=== PATIENT | male | born 1955 | race Caucasian/White ===

== ENCOUNTER 2024-05-24 09:03 | Emergency (ER) | payer OTHER, SELFPAY ==
[2024-05-24 09:05] VITALS: BP 139/73
--- NOTE | 2024-05-24 09:19 | ED.GENMED ---
History of Present Illness
General
Chief Complaint: Fall
Source: patient
Exam Limitations: none
Time Seen by Provider: 05/24/24 09:09
History of Present Illness
History of Present Illness:
68yoM with a history of hypertension and hyperlipidemia presenting for evaluation of right knee pain. Patient was walking in his driveway around 5-6pm last night. He tripped on what he believes was ice and landed on his bent right knee. He denies
any head strike or LOC. His only current complaint is right knee pain. He has been using crutches since the injury. No prior knee injuries or surgeries in the past. He has not taken anything OTC.
Past History
Past History
ED Past Medical History: Arrthythmia (A-fib on ASA. History of SVT with ablation in 20 years ago), GERD, HTN, Hypercholesterolemia, Psychiatric (Depression, anxiety) and Other (Back pain, pneumonia, chronic bronchitis, arthritis)
ED Past Surgical History: Cardiac (Radiofrequency ablation over 20 years ago for SVT.) and Other (History of electrophysiology studies)
Social History
Tobacco: Non-smoker
Alcohol: None
Drug: None
Personal:
Living: with family
Employment: Not employed
Family History
Family History: Other (Noncontributory )
Phy Exam
General Physical Exam
General Presentation: well appearing and no apparent distress
General age: appears stated age
General Skin: warm and dry
General Habitus: normal
General Mental: alert
ENT Exam
ENT Exam: normocephalic and other (No cervical spine tenderness)
Pulmonary Exam
Pulmonary Exam: no respiratory distress
Neurological Exam
Neurological Exam: alert
Vikas Coma Scale
Eye Opening: Spontaneous
Verbal Response: Oriented
Motor Response: Obeys Commands
GCS Total Score: 15
Musculoskeletal Exam
Musculoskeletal Exam: other (R knee: Swelling noted with no deformity. +Generalized tenderness to anterior joint. ROM decreased 2/2 pain. 2+ DP pulse and sensation intact. )
Skin Exam
Skin Exam: normal color and warm/dry
Psychiatric Exam
Psychiatric Exam: normal mood/affect
Course
Orders/Labs/Results
Orders:
Orders
05/24/24 09:18
Oxycodone/Acetaminophen [Percocet 5/325] 1 tablet PO NOW STA
CR Knee- Right 4 Or More View* Urgent
Comment:
Reason For Exam: injury
05/24/24 11:13
Knee Immobilizer Right-Treatme ONCE
Vital Signs
Initial and Last Documented VS:
Initial Vital Signs
Temp Pulse Resp BP Pulse Ox
97.6 F 71 16 139/73 100
05/24/24 09:05 05/24/24 09:05 05/24/24 09:05 05/24/24 09:05 05/24/24 09:05
Last Documented Vital Signs
Temp Pulse Resp BP Pulse Ox
97.6 F 71 16 139/73 100
05/24/24 09:05 05/24/24 09:05 05/24/24 09:05 05/24/24 09:05 05/24/24 09:05
MDM/Problems Addressed
Differential Diagnosis Includes:
68yoM here with R knee pain after a fall last night. No other complaints. VSS. There is swelling and tenderness noted to the R knee without deformity. RLE is neurovascularly intact. Differential diagnosis includes but is not limited to: fracture,
sprain, dislocation
X-rays of R knee obtained. No fractures or dislocation seen. There is a moderate suprapatellar effusion present. Patient placed in a knee immobilizer. He has crutches at home. Supportive care discussed. Advised f/u with orthopedics. He was
discharged in stable condition.
*Critical Care Note
Total Time (30-74mins, 75-104mins- exclusive of procedures): Not Applicable
ED Attending Note
-
Portions of this chart may have been created with voice recognition software.� Occasional wrong word or��sound alike� substitutions may have occurred due to the inherent limitations of voice recognition software.
Discharge Plan
Departure
Patient Disposition: Home (Routine Discharge)
Date of Disposition: 05/24/24
Time of Disposition: 11:22
Patient with high blood pressure during this ER visit?: No
Discharge Problem:
Injury of right knee
Instructions: Knee Immobilizer (DC), Knee pain - ED discharge instructions
Prescriptions:
No Action
simvastatin 10 MG tablet
5 mg PO QPM
aspirin [Aspir-Low] 81 MG tablet,delayed release (DR/EC)
81 mg PO DAILY
diltiazem HCl [Cardizem LA] 240 MG tablet extended release 24 hr
240 mg PO DAILY
Flax Seed Oil
1 tab PO DAILY
Folic Acid
1 tab PO DAILY
Vitamin D
1 tab PO DAILY
alprazolam 0.25 MG tablet
0.25 mg PO Q8HPRN PRN (Reason: anxiety)
zolpidem [Ambien] 10 MG tablet
10 mg PO HS
vilazodone [Viibryd] 1 EACH tablets,dose pack
1 ea PO DAILY
Mysoline
10 mg PO HS
Referrals:
Edgar Thompson MD [Active] -
Jesika Henao MD [Family Provider] -
Stand Alone Forms: Return to Work
Activity Restrictions/Additional Instructions:
Wear knee immobilizer. Apply ice and elevate your knee to help with swelling. Take Tylenol as needed for pain.
Please call today to schedule a follow-up appointment with orthopedics.
Interventions
Interventions:
*Risk Screen - Suicide Last Done: 05/24/24 09:05
*General Assessment Last Done: 05/24/24 09:05
*Neglect/Abuse Screening Last Done: 05/24/24 09:05
ED-Musculoskeletal Assessment Last Done: 05/24/24 09:24
ED- Neurological Assessment Last Done: 05/24/24 09:24
ED-Skin Assessment Last Done: 05/24/24 09:24
Discharge Date and Time
Print Language: [place]
[2024-05-24] MEDS: PERCOCET 5/325 1 TABLET PO (09:22)
[2024-05-24 12:01] VITALS: BP 138/69
== END 2024-05-24 12:03 | disposition home or self-care (01) ==
LOC: EMR 09:03
PROVIDERS: EMERGENCY PHYSICIAN Emergency Medicine; FAMILY PHYSICIAN Family Medicine
DX: S89.91XA Unspecified injury of right lower leg, initial encounter (principal); W00.0XXA Fall on same level due to ice and snow, initial encounter; E78.00 Pure hypercholesterolemia, unspecified; I10 Essential (primary) hypertension; I48.91 Unspecified atrial fibrillation; K21.9 Gastro-esophageal reflux disease without esophagitis; Z79.82 Long term (current) use of aspirin
CPT/HCPCS: 29505; 99283; 73564

== ENCOUNTER 2024-06-05 21:07 | Emergency (ER) | payer SELFPAY ==
[2024-06-05 21:10] VITALS: BP 120/91
[2024-06-06] VITALS: BP 127/79
[2024-06-06 00:01] VITALS: BMI 28.5
--- NOTE | 2024-06-06 00:29 | ED.MUSCINJ ---
HPI-Injury
General
Chief Complaint: Fall
Source: patient
Exam Limitations: none
Time Seen by Provider: 06/06/24 00:07
History of Present Illness-Injury
Initial Injury comments:
69-year-old male presents complaining of ongoing right knee pain. He was seen here couple weeks ago after slip and fall while at work. He fell directly on his knee. X-rays were taken of his knee at that time were negative for fracture but did
demonstrate an effusion. He was given a knee immobilizer and told to follow-up. He states he does not have an appointment until June with the orthopedic doctor. He is not sure if his knee immobilizer is working properly. He notes ongoing pain
and presented here. No new injury. He denies a fever. He has been using Tylenol with some relief. He has crutches as well.
Past History
Past History
ED Past Medical History: Arrthythmia (A-fib on ASA. History of SVT with ablation in 20 years ago), GERD, HTN, Hypercholesterolemia, Psychiatric (Depression, anxiety) and Other (Back pain, pneumonia, chronic bronchitis, arthritis)
ED Past Surgical History: Cardiac (Radiofrequency ablation over 20 years ago for SVT.) and Other (History of electrophysiology studies)
Social History
Tobacco: Non-smoker
Alcohol: None
Drug: None
Personal:
Living: with family
Employment: Not employed
Family History
Family History: Other (Noncontributory )
Phy Exam
Physical Exam
Physical Exam:
General: Well-appearing male no acute respiratory distress
HEENT: Normocephalic atraumatic
Musculoskeletal exam: Right knee with resolving ecchymosis over the anterior inferior portion of the knee. He has full extension flexion to about 90 degrees able to straight leg raise. The knee is stable to ligament exam. Slightly tender about
the anterior aspect of the knee without deformity skin is intact without laceration or abrasion
Injury Course
Orders/Labs/Results
Orders:
Orders
06/06/24 00:21
Ibuprofen [Motrin] 600 mg PO NOW STA
MDM/Problems Addressed
Differential Diagnosis Includes:
Continued right knee pain without any new injury. Suspect ongoing discomfort from underlying contusion or sprain. No significant effusion on exam to drain. Do not suspect septic arthritis. Recommend continued use of his knee immobilizer and
ibuprofen for pain. Advise follow-up with orthopedics
*Critical Care Note
Total Time (30-74mins, 75-104mins- exclusive of procedures): Not Applicable
ED Attending Note
-
Portions of this chart may have been created with voice recognition software.� Occasional wrong word or��sound alike� substitutions may have occurred due to the inherent limitations of voice recognition software.
Discharge Plan
Departure
Patient Disposition: Home (Routine Discharge)
Date of Disposition: 06/06/24
Time of Disposition: 00:32
Patient with high blood pressure during this ER visit?: No
Discharge Problem:
Acute knee pain
Instructions: Contusion (DC)
Prescriptions:
New
meloxicam 7.5 mg tablet
7.5 mg PO BID Qty: 14 0RF
No Action
simvastatin 10 MG tablet
5 mg PO QPM
aspirin [Aspir-Low] 81 MG tablet,delayed release (DR/EC)
81 mg PO DAILY
diltiazem HCl [Cardizem LA] 240 MG tablet extended release 24 hr
240 mg PO DAILY
Flax Seed Oil
1 tab PO DAILY
Folic Acid
1 tab PO DAILY
Vitamin D
1 tab PO DAILY
alprazolam 0.25 MG tablet
0.25 mg PO Q8HPRN PRN (Reason: anxiety)
zolpidem [Ambien] 10 MG tablet
10 mg PO HS
vilazodone [Viibryd] 1 EACH tablets,dose pack
1 ea PO DAILY
Mysoline
10 mg PO HS
Referrals:
Sepe,Jesika Linne, MD [Family Provider] -
Activity Restrictions/Additional Instructions:
Continue with ibuprofen 400 or 600 mg every 8 hours. Use brace as needed. Use crutches as needed. Continue to follow-up with orthopedics as planned
Interventions
Interventions:
ED- Fall Risk Assessment Last Done: 06/06/24 00:01
ED-Musculoskeletal Assessment Last Done: 06/06/24 00:01
ED- Neurological Assessment Last Done: 06/06/24 00:01
ED-Skin Assessment Last Done: 06/06/24 00:01
Discharge Date and Time
Print Language: ALBANIAN
[2024-06-06] MEDS: MOTRIN 600 MG PO (00:32)
[2024-06-06 00:47] VITALS: BP 133/72
== END 2024-06-06 01:07 | disposition home or self-care (01) ==
LOC: EMR 21:07
PROVIDERS: EMERGENCY PHYSICIAN Emergency Medicine; FAMILY PHYSICIAN Family Medicine
DX: M25.561 Pain in right knee (principal); S80.01XA Contusion of right knee, initial encounter; W01.0XXA Fall on same level from slipping, tripping and stumbling without subsequent striking against object, initial encounter; Y93.89 Activity, other specified; Y92.89 Other specified places as the place of occurrence of the external cause; Y99.0 Civilian activity done for income or pay; I48.91 Unspecified atrial fibrillation; I10 Essential (primary) hypertension; K21.9 Gastro-esophageal reflux disease without esophagitis; F41.9 Anxiety disorder, unspecified; F32.A Depression, unspecified; E78.00 Pure hypercholesterolemia, unspecified; M19.90 Unspecified osteoarthritis, unspecified site; J42 Unspecified chronic bronchitis; Z87.01 Personal history of pneumonia (recurrent); Z79.82 Long term (current) use of aspirin; Z88.3 Allergy status to other anti-infective agents; Z88.0 Allergy status to penicillin; Z88.8 Allergy status to other drugs, medicaments and biological substances
CPT/HCPCS: 99283

== ENCOUNTER 2024-08-10 05:55 | Day surgery (SDC) | payer OTHER, SELFPAY ==
[2024-08-03 12:31] VITALS: BMI 29.9
[2024-08-10] VITALS (8 sets, daily range): BP systolic 121–167; BP diastolic 65–98; BMI 29.9
[2024-08-10] MEDS: HEPARIN 5000 UNITS SC (06:32)
[2024-08-10] MEDS: TYLENOL 1000 MG PO (06:32)
[2024-08-10] MEDS: NORMOSOL-R/PLASMALYTE-A 1000 IV (06:33)
--- NOTE | 2024-08-10 08:24 | W.IMMPOSTOP ---
Surgical Immed Post Op Note
-
Primary Surgeon: Joana
Assisting: Xavi KLINE
Pre-op Diagnosis: Right inguinal hernia
Post-op Diagnosis: Same
Procedure Performed: Robot assisted laparoscopic repair of right inguinal hernia
Anesthesia Type: GETA
Specimen / Cultures: None
Estimated Blood Loss: 10cc
Complications: None immediate
Operative Findings: Right indirect defect, large cord lipoma; XL MID 3D Max
--- NOTE | 2024-08-10 08:27 | OR.RPT ---
Operative Report
Operative Report
Primary Surgeon: Joana
Assisting: Xavi KLINE
Pre-op Diagnosis: Right inguinal hernia
Post-op Diagnosis: Same
Procedure Performed: Robot assisted laparoscopic repair of right inguinal hernia
Anesthesia Type: GETA
Specimen / Cultures: None
Estimated Blood Loss: 10cc
Complications: None immediate
Operative Findings: Right indirect defect, large cord lipoma; XL MID 3D Max
Date of surgery: 08/10/24
Indications:� This 69M developed a symptomatic right inguinal hernia. Robot assisted laparoscopic repair of left inguinal hernias was planned.
Description of procedure:� The patient was taken to the operating room and positioned into supine position. The patient�s abdomen was prepped and draped in standard sterile fashion. A time-out was completed verifying correct patient, procedure,
site, positioning, and implants and special equipment prior to beginning this procedure.
A stab incision was made in the left upper quadrant, a Veress needle was inserted and proper position was confirmed by aspiration and saline drop test. Following this, pneumoperitoneum was created with insufflation of carbon dioxide to 12 mmHg. Then
a 8mm robotic trocar was inserted above and to the left of the umbilicus. A laparoscope was inserted and the area of initial trocar entry and Veress needle placement were both inspected and no injuries were found. Two 8mm trocars were then placed
lateral to the rectus sheath under direct visualization.
Both inguinal regions were inspected and the median umbilical ligament, medial umbilical ligament, and lateral umbilical fold were identified. Attention was turned to the right groin. The peritoneum was incised transversely above the defect and a
flap was developed in the caudad direction. Tucker�s ligament was identified ultimately dissected to its junction with the iliac vein and the space of Retzius was developed bluntly.� The dissection was continued inferiorly to the iliopubic tract,
with care taken to avoid injury to the femoral branch of the genitofemoral nerve and the lateral femoral cutaneous nerve. The inferior epigastrics were low and lateral and obstructing the flat lay of the mesh. They were controlled with bipolar
cautery and sacrificed. The cord structures were parietalized.
The direct space was inspected and no hernia defect was identified, however the wall was somewhat weak in this area. The femoral space was inspected no defect was identified. The indirect space was inspected and a hernia was identified and reduced
by gentle traction. The canal was inspected and a large cord lipoma was identified and reduced by gentle traction.
Extra large right MID 3D max mesh was passed through a trocar. The mesh was placed into the preperitoneal space and moved into position to lay flat and completely cover the direct, indirect, and femoral spaces with overlap at the midline. The mesh
was secured into place using 2-0 vicryl suture to Tucker�s ligament medially and laterally. Care was taken to avoid the inferolateral triangles containing the iliac vessels and genital nerves. The peritoneal flap was closed over the mesh and secured
with 2-0 monocryl stratafix suture in similar positions of safety. A 14g angiocath was used to decompress the preperitoneal space revealing good seal and all mesh in good position without folding or curling.
After ensuring adequate hemostasis, the trocars were removed and the pneumoperitoneum allowed to escape. The trocar incisions were closed at the skin level using 4-0 monocryl and topical skin adhesive. All counts were correct and the patient
tolerated the procedure well and was taken to the postanesthesia care unit in stable condition.
The assistance of Xavi KLINE was required due to the complexity of the procedure. During the procedure she assisted with retraction, resection, and closure of the wound.
[2024-08-10] MEDS: ROXICODONE 5 MG PO (09:55)
== END 2024-08-10 10:36 | disposition home or self-care (01) ==
LOC: SDS 05:55
PROVIDERS: ATTENDING PHYSICIAN Surgery; FAMILY PHYSICIAN Family Medicine
DX: K40.90 Unilateral inguinal hernia, without obstruction or gangrene, not specified as recurrent (principal)
CPT/HCPCS: 49650; 36415; 87070; 93005; C1781

== ENCOUNTER 2024-08-11 16:45 | Emergency (ER) | payer OTHER, SELFPAY ==
[2024-08-11 16:50] VITALS: BP 154/77
[2024-08-11 17:26] LABS: % Basophils 0.3 % (0-2); % Eosinophils 0.1 % (0-6); % Immature Granulocytes 0.4 % (0-0.5); % Monocytes 6.1 % (1.7-9.3); % Neutrophils 81.1 % (42.2-75.2); Absolute Immature Granulocytes 0.1 10^3/uL (0-0.05); Absolute Lymphocytes 1.4 10^3/uL (1.2-3.4); Absolute Monocytes 0.7 10^3/uL (0.1-0.6); Absolute Neutrophils 9.6 10^3/uL (1.4-6.5); Hematocrit 43.5 % (39.0-52.0); Hemoglobin 14.3 g/dL (13.0-18.0); Mean Corp Hgb Conc. 32.9 g/dL (33.0-37.0); Mean Corpuscular Hgb 27.3 pg (27.0-31.0); Mean Corpuscular Volume 83.2 fL (80.0-94.0); Mean Platelet Volume 11.6 fL (7.4-10.4); Nucleated Red Blood Cells % 0 % (-); Platelet Count 153 10^3/uL (130-400); Red Blood Cell Count 5.23 10^6/uL (4.70-6.10); Red Cell Dist. Width 13.6 % (11.5-14.5); White Blood Cell Count 11.9 10^3/uL (4.8-10.8)
[2024-08-11 17:37] LABS: INR 1.24; PT 16.1 Sec (11.4-14.6)
[2024-08-11 17:39] LABS: ALT (SGPT) 23 U/L (0-50); AST (SGOT) 32 U/L (17-59); Albumin 4.2 g/dl (3.5-5.0); Alkaline Phosphatase 47 U/L (38-126); Blood Urea Nitrogen 26 mg/dl (9-20); Calcium 9.8 mg/dl (8.4-10.2); Carbon Dioxide 32 mmol/L (22-30); Chloride 103 mmol/L (98-107); Glucose 101 mg/dl (70-99); Potassium 3.8 mmol/L (3.5-5.1); Sodium 142 mmol/L (135-145); Total Bilirubin 0.9 mg/dl (0.2-1.3); eGFR > 60.00
[2024-08-11 17:52] LABS: Troponin I < 0.012 ng/ml
[2024-08-11 18:04] VITALS: BP 115/71
[2024-08-11 18:07] VITALS: BMI 28.0
[2024-08-11 19:00] VITALS: BP 126/65
--- NOTE | 2024-08-11 19:23 | ED.GENMED ---
History of Present Illness
General
Chief Complaint: Breathing Problem
Time Seen by Provider: 08/11/24 18:09
History of Present Illness
History of Present Illness:
69-year-old male presents the emergency department for evaluation of bilateral trapezius pain and chest discomfort beginning today. Pain is pleuritic in nature. He is 1 day status post laparoscopic inguinal hernia repair with mesh done by
Joana at this facility. Denies any abdominal pain, nausea, vomiting, or diarrhea. No hemoptysis. He was intubated for the procedure
Past History
Past History
ED Past Medical History: Arrthythmia (A-fib on ASA. History of SVT with ablation in 20 years ago), GERD, HTN, Hypercholesterolemia, Psychiatric (Depression, anxiety) and Other (Back pain, pneumonia, chronic bronchitis, arthritis)
ED Past Surgical History: Cardiac (Radiofrequency ablation over 20 years ago for SVT.) and Other (History of electrophysiology studies)
Social History
Tobacco: Non-smoker
Alcohol: None
Drug: None
Personal:
Living: with family
Employment: Not employed
Family History
Family History: Other (Noncontributory )
Review of Systems
Review of Systems
Allergies reviewed?: Yes
All Other Systems: ROS reviewed and negative except as documented in HPI and ROS
Phy Exam
Physical Exam
Physical Exam:
GEN: Well appearing, NAD, WDWN
HEENT: Oral mucosa moist, no scleral icterus
Cardiac: Regular rate and rhythm, no murmurs or rubs
Chest: No palpable crepitus to the anterior chest or neck bilaterally
Lung: No respiratory distress, no tachypnea, lungs clear to auscultation bilaterally
Abdomen: Soft, grossly nontender, incision sites clean dry and intact
MSK: No gross deformity or injuries
Skin: Good color, no pallor or jaundice, no rashes
Neuro: AO x3, moves all extremities freely
Psych: Calm, cooperative
Scores
Heart Failure Risk
Heart Failure Risk Score: Not Applicable
Course
Orders/Labs/Results
Orders:
Orders
08/11/24 16:47
Electrocardiogram (*1) Urgent
Reason for Study: Shortness of Breath
EKG- Treatment ONCE
08/11/24 17:04
Complete Blood Count/With Diff Urgent
Comprehensive Metabolic Panel Urgent
PTT Urgent
Prothrombin Time Urgent
Troponin I Urgent
08/11/24 18:13
CR Chest - 2 Views Urgent
Comment:
Reason For Exam: shoulder/epigastric pain post hernia repair
Abnormal Lab Results
08/11/24
17:04
WBC 11.9 H 10^3/uL
(4.8-10.8)
MCHC 32.9 L g/dL
(33.0-37.0)
MPV 11.6 H fL
(7.4-10.4)
Abs Immat Gran (auto) 0.1 H 10^3/uL
(0-0.05)
Absolute Neuts (auto) 9.6 H 10^3/uL
(1.4-6.5)
Absolute Monos (auto) 0.7 H 10^3/uL
(0.1-0.6)
Neutrophils % 81.1 H %
(42.2-75.2)
Lymphocytes % 12.0 L %
(20.5-51.1)
PT 16.1 H Sec
(11.4-14.6)
Carbon Dioxide 32 H mmol/L
(22-30)
BUN 26 H mg/dl
(9-20)
Glucose 101 H mg/dl
(70-99)
08/11/24 17:04
08/11/24 17:04
Vital Signs
Initial and Last Documented VS:
Initial Vital Signs
Temp Pulse Resp BP Pulse Ox
98.6 F 78 18 154/77 100
08/11/24 16:50 08/11/24 16:50 08/11/24 16:50 08/11/24 16:50 08/11/24 16:50
Last Documented Vital Signs
Temp Pulse Resp BP Pulse Ox
98.6 F 82 15 128/68 98
08/11/24 16:50 08/11/24 20:08 08/11/24 20:08 08/11/24 20:08 08/11/24 20:08
MDM/Problems Addressed
MDM/Problems Addressed:
Symptoms most likely due to post surgical pneumoperitoneum, no evidence for pneumomediastinum. Labs reassuring, benign abd exam. Recommend home observation and return to ED if worsening or fever
*Critical Care Note
Total Time (30-74mins, 75-104mins- exclusive of procedures): Not Applicable
ED Attending Note
-
Portions of this chart may have been created with voice recognition software.� Occasional wrong word or��sound alike� substitutions may have occurred due to the inherent limitations of voice recognition software.
Discharge Plan
Departure
Patient Disposition: Home (Routine Discharge)
Date of Disposition: 08/11/24
Time of Disposition: 21:03
Patient with high blood pressure during this ER visit?: No
Discharge Problem:
Pneumoperitoneum
Prescriptions:
No Action
Folic Acid
1 tab PO HS
atorvastatin 40 mg Tablet
40 mg PO HS
alprazolam [Xanax] 1 mg Tablet
1 mg PO HS PRN (Reason: anxiety)
alendronate 70 mg Tablet
70 mg PO SEAY
Rx Instructions:
take once a week on friday
propranolol 60 mg Tablet
60 mg PO HS
aspirin 81 mg Tablet,Delayed Release (Dr/Ec)
81 mg PO HS
pantoprazole 20 mg Tablet,Delayed Release (Dr/Ec)
20 mg PO HS
cyanocobalamin (vitamin B-12) [Vitamin B-12] 500 mcg Tablet
500 mcg PO HS
tamsulosin 0.4 mg Capsule
0.4 mg PO HS
zolpidem [Ambien] 10 mg Tablet
10 mg PO HS PRN (Reason: for sleep)
finasteride 5 mg Tablet
5 mg PO HS
fenofibrate 160 mg Tablet
160 mg PO HS
cholecalciferol (vitamin D3) [Vitamin D3] 25 mcg (1,000 unit) Tablet,Chewable
25 mcg PO DAILY
vilazodone [Viibryd] 40 mg Tablet
40 mg PO DAILY
magnesium glycinate 200 mg capsule
1 cap PO HS
tramadol 50 mg tablet
50 mg PO Q6H PRN (Reason: Pain) Qty: 14 0RF
Referrals:
Jesika Henao MD [Family Provider] -
Activity Restrictions/Additional Instructions:
The air in your abdomen is due to the surgical procedure and will gradually resolve. If your pain worsens tomorrow or you develop a fever return to the ER for further workup
Interventions
Interventions:
*Risk Screen - Suicide Last Done: 08/11/24 16:50
*General Assessment Last Done: 08/11/24 18:08
*Neglect/Abuse Screening Last Done: 08/11/24 16:50
*ED- Fall Risk Assessment Last Done: 08/11/24 18:08
*ED COVID-19 Vaccine History Last Done: 08/11/24 16:50
*Nursing Disposition Last Done: 08/11/24 21:15
ED- Cardiac Assessment Last Done: 08/11/24 20:15
ED- Pulmonary Assessment Last Done: 08/11/24 20:15
Discharge Date and Time
Discharge Date/Time: 08/11/24 21:15
Print Language: INDONESIAN
[2024-08-11 20:08] VITALS: BP 128/68
--- NOTE | 2024-08-11 20:18 | EDRN ---
Pt had hernia surgery yesterday morning at . Pt went home, felt fine rest of the day. Pt woke this morning with pain in b/l shoulders and upper chest which prompted ED visit. Pt says pain has improved and is only in his shoulders now. No cp,
sob.
== END 2024-08-11 21:15 | disposition home or self-care (01) ==
LOC: EMR 16:45
PROVIDERS: Emergency Medicine; EMERGENCY PHYSICIAN Emergency Medicine; FAMILY PHYSICIAN Family Medicine
DX: K66.8 Other specified disorders of peritoneum (principal); E78.00 Pure hypercholesterolemia, unspecified; I10 Essential (primary) hypertension; I48.91 Unspecified atrial fibrillation; Z79.82 Long term (current) use of aspirin; Z98.890 Other specified postprocedural states
CPT/HCPCS: 99285; 71046; 80053; 84484; 85025; 85610; 85730; 93005